=== PATIENT | female | born 1980 | race Caucasian/White ===

== ENCOUNTER 2018-05-28 12:00 | Outpatient (CLI) | payer OTHER ==
[~2018-05-28 12:00] MED LIST: FOLIC ACID0.4 MG; OBSTETRIX DHA1 EACH
== END 2018-05-28 13:00 | disposition home or self-care (01) ==
LOC: NST 12:00
DX: Z34.83 Encounter for supervision of other normal pregnancy, third trimester (principal)

== ENCOUNTER 2018-06-14 11:11 | Outpatient (CLI) | payer OTHER | END 2018-06-14 11:50 | disposition home or self-care (01) | LOC: NST 11:11 | DX: Z34.83 Encounter for supervision of other normal pregnancy, third trimester (principal) ==

== ENCOUNTER 2018-06-15 08:59 | Inpatient (IN) | payer OTHER ==
[~2018-06-15] VITALS: Ht 157.5 cm; Wt 74.4 kg
== END 2018-06-17 11:16 | DRG 807 ==
LOC: OB/GYN 08:59 → LDR 08:59 → OB/GYN 15:08
PROC: 10E0XZZ Delivery of Products of Conception, External Approach (ICD-10-PCS; principal; 2018-06-15)
PROC: 4A1HXCZ Monitoring of Products of Conception, Cardiac Rate, External Approach (ICD-10-PCS; 2018-06-15)
PROC: 0UQGXZZ Repair Vagina, External Approach (ICD-10-PCS; 2018-06-15)
PROC: 4A033R1 Measurement of Arterial Saturation, Peripheral, Percutaneous Approach (ICD-10-PCS; 2018-06-15)
DX: O71.4 Obstetric high vaginal laceration alone (principal); Z37.0 Single live birth; Z3A.36 36 weeks gestation of pregnancy